=== PATIENT | male | born 1970 | race Caucasian/White ===

== ENCOUNTER 2021-01-27 14:19 | Emergency (ER) | payer OTHER ==
[~2021-01-27] VITALS: Ht 177.8 cm; Wt 88.5 kg
[2021-01-27] MEDS ORDERED: DIABETES MED (14:25)
[2021-01-27 15:03] VITALS: BP 132/87
== END 2021-01-27 15:04 | disposition left against medical advice (07) ==
LOC: M.ERS 14:19
DX: R10.9 Unspecified abdominal pain (principal); M54.9 Dorsalgia, unspecified; Z53.21 Procedure and treatment not carried out due to patient leaving prior to being seen by health care provider